=== PATIENT | female | born 1935 | race Caucasian/White ===

== ENCOUNTER 2022-02-23 10:16 | Outpatient (CLI) | payer MEDICARE, BC, SELFPAY ==
--- NOTE | 2022-02-23 10:15 | CRLHL7_ITS ---
For Patients: As a result of the Century Cures Act, medical imaging exams and procedure reports are released immediately into your electronic medical record. You may view this report before your referring provider. If you have questions, please contact your health care provider. RIGHT SCREENING MAMMOGRAM WITH COMPUTER-AIDED DETECTION AND TOMOSYNTHESIS TECHNIQUE: CC and MLO views were obtained. These mammographic images have been obtained using full-field digital technique. These mammographic images were interpreted with the benefit of computer-aided detection. Breast Tomosynthesis was used in this interpretation. COMPARISON FILM: 12/10/19, 01/15/18, 09/18/14. FINDINGS: There are scattered areas of fibroglandular density IMPRESSION: There is no radiographic evidence for malignancy. ASSESSMENT: BI-RADS Category 2: Benign RECOMMENDATION: Routine screening mammogram in 1 year. A lay language report of this examination will be provided to the patient. Danish Wallace M.D. Diagnostic/Musculoskeletal Radiologist [email or web address] ASHLYN/Dictated by: Danish Wallace MD @ 02/24/2022 8:10:00 AM (Electronically Signed)
--- OUTSIDE RECORDS SUMMARY | 2022-02-23 10:19 | XMS_ITS | Clinical Summary ---
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 - - Inhaled Oxygen Concentration - - Weight 90.3 kg (199 lb) 12/27/2018 3:13 PM CDT Height - - Body Mass Index - - Plan of Treatment Upcoming Encounters Date Type Specialty Care Team Description 03/27/2022 Office Visit Ha Campos MD [address] [place] [address] [address] (Wo rk) Health Maintenance Due Date Last Done Comments Tdap 1946 Depression screening for age 12+ 1948 BMI (ht and wt on same day) for age 0107/15/1954 18+ Tetanus booster 1956 Zoster (shingles) series for age 50+ 1986 (1 of 2) DEXA/DXA scan for age 65+ 2001 Medicare Wellness for age 65+ 2001 Pneumococcal series for age 65+ ( - 2001 PCV) COVID-19 vaccine series (4 - Booster 09/24/2021 05/26/2021, 08/05/2020, for Moderna series) 07/08/2020 Influenza for age 65+ 02/23/2022 Results Not on filefrom Last 3 Months Insurance Payer Benefit Plan / Subscriber ID Effective Dates Phone Addre ss Type Group MEDICARE PART A MEDICARE PART A [id number] 2001-Present ATTN: CLAIMS - HB USE ONLY HB ONLY [address] [place] [address] MEDICARE PART B MEDICARE PART B [id number] 2007-Presen ATTN: CLAIMS - HB USE ONLY HB ONLY t [address] [place] [address] MEDICARE - PB MEDICARE PB [id number] 2018-Prese ATT N: CLAIMS USE ONLY ONLY nt [address] [place] [address] [place] [id number] 2001-Present [place] [id number] [place] [address] [address] (Home) [address] [facility] [place] [address] Care Teams Foundry Worker Relationship Specialty Start Date End Date Vane Cruz MD PCP - General Family Practice 02/08/211999 [place] [address]
== END 2022-02-23 10:17 | disposition home or self-care (01) ==
LOC: MAMMO 10:17
PROVIDERS: PCP Family Medicine; Visit Provider Family Medicine
DX: Z12.31 Encounter for screening mammogram for malignant neoplasm of breast (principal)
CPT/HCPCS: 77063; 77067

== ENCOUNTER 2022-04-05 14:15 | Outpatient (CLI) | payer MEDICARE, BC, SELFPAY ==
--- OUTSIDE RECORDS SUMMARY | 2022-04-05 14:18 | XMS_ITS | Clinical Summary ---
:1935 Author Organization [facility] [place] [address] Care Team Providers Name Role Phone Vane Cruz MD Primary Care Provider [phone] Allergies Active Allergy Reactions Severity Noted Date Comments Codeine Itching, Rash 05/17/2011 Medications Medication Sig Dispensed Refills Start Date End Date Status Jantoven 2 mg tablet 0 03/09/2022 Active VITAMINS Take 1 tablet. 0 10/25/2017 Acti ve A,C,I-VUYV-KFEZZP by mouth. (PRESERVISION AREDS) 2,148 mcg-113 mg-45 mg-17.4mg tablet sotaloL (BETAPACE) 80 mg 0 01/27/2022 Active tablet rosuvastatin (CRESTOR) 0 03/26/2022 Active 10 mg tablet oxybutynin XL (DITROPAN 0 03/21/2022 Active XL) 10 mg CR tablet omeprazole (PRILOSEC) 40 0 03/21/2022 Active mg Delayed-Release capsule Wpjrf-6-NZT-EPA-Fish Oil Take 1 capsule. 0 6 Active 1,000 mg (120 mg-180 mg) by mouth. cap multivitamin (MVI) Take 1 Tablet by 0 Active tablet mouth once daily. metoprolol succinate Take 50 mg by 0 Active (TOPROL XL) 25 mg mouth. Sustained-Release tablet artificial Tear, 1 Drop every 6 0 Active hypromellose 0.3 % gel, hours if needed. (GENTEAL) 0.3 % gel furosemide (LASIX) 40 mg 0 01/22/2022 Active tablet finasteride (PROSCAR) 5 0 07/20/2021 Active mg tablet anastrozole (ARIMIDEX) 1 0 01/30/2022 Active mg tablet acetaminophen (TYLENOL Take 1 tablet. 0 06/26/2017 Active EXTRA STRGTH) 500 mg by mouth. tablet Active Problems No known active problems Encounters Date Type Specialty Care Team Description 03/27/2022 Office Visit Ha Campos, Musculo skeletal Problem (Consult bilate ral knee pain, right is worse, discuss Coolief procedu re per TASNEEM Tolentino); Consult (Other joint pain, rosaura ulders) 03/27/2022 Travel from Last 3 Months Social History Tobacco Use Types Packs/Day Years Used Date Never Smoker Smokeless Tobacco: Never Used Sex Assigned at Date Recorded Not on file COVID-19 Exposure Response Date Recorded In the last 10 days, have you been in contact with No / Unsu re 03/27/2022 10:16 AM CDT someone who was confirmed or suspected to have Coronavirus/COVID-19? 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 Saturation 95% 03/27/2022 10:47 AM CDT Inhaled Oxygen Concentration - - Weight 89.5 kg (197 lb 6.4 oz) 03/27/2022 10:47 AM CDT Height - - Body Mass Index - - Plan of Treatment Upcoming Encounters Date Type Specialty Care Team Description 04/11/2022 Procedure Only Ha Campos MD [address] [facility] [address] (Wo rk) Health Maintenance Due Date Last Done Comments Tdap 1946 Depression screening for age 12+ 1948 BMI (ht and wt on same day) for 1954 age 18+ Zoster (shingles) series for age 0107/15/1955 50+ (1 of 2) Tetanus booster 1956 DEXA/DXA scan for age 65+ 2001 Medicare Wellness for age 65+ 2001 Pneumococcal series for age 65+ (1 2001 - PCV) COVID-19 vaccine series (5 - 02/13/2022 12/19/2021, 021, Booster for Moderna series) 08/05/2020, Addition al history exists Influenza for age 65+ 02/23/2022 Results Not on filefrom Last 3 Months Insurance Payer Benefit Plan / Subscriber ID Effective Dates Phone Addre ss Type Group MEDICARE PART A MEDICARE PART A [id number] 2001-Present ATTN: CLAIMS - HB USE ONLY HB ONLY [address] [place] [address] MEDICARE PART B MEDICARE PART B [id number] 2007-Presen ATTN: CLAIMS - HB USE ONLY HB ONLY t [address] [place] [address] MEDICARE - PB MEDICARE PB [id number] 2018-Prese ATT N: CLAIMS USE ONLY ONLY nt [address] [place] [address] [place] [id number] 2001-Present [place] [address] [place] [address] [address] (Home) [address] [facility] [place] [address] Care Teams Anesthesia Technician Relationship Specialty Start Date End Date Vane Cruz MD PCP - General Family Practice 02/08/211999 [facility] [place] [address]
--- NOTE | 2022-04-05 14:30 | CRLHL7_ITS ---
For Patients: As a result of the Century Cures Act, medical imaging exams and procedure reports are released immediately into your electronic medical record. You may view this report before your referring provider. If you have questions, please contact your health care provider. DXA BONE MINERAL DENSITY STUDY Current height (in): 63.0. Weight (lb): 193.0. Menopause age: 51. Ethnicity: White. Reason for exam: Screening. 1. Have you had a previous hip or vertebral fracture? No. 2. Have you had any fractures during your adult life which did not result from significant trauma (e.g., auto accident)? No. 3. Did either of your parents have a hip fracture? No. 4. Do you smoke? No. 5. Have you ever taken Glucocorticoids? No. 6. Do you have rheumatoid arthritis? Yes. 7. Do you have secondary osteoporosis? Yes. 8. Do you drink 3 or more alcoholic drinks per day? No. 9. Are you being treated for osteoporosis? No. 10. Have you ever taken any of the following medications: Actonel, Evista, Fosamax, Miacalcin, Reclast, Boniva, Forteo, HRT (i.e. estrogen/hormone therapy), Protelos, Prolia, Vitamin D, Calcium, other ??? please specify. ANSWER: Yes, vitamin D, calcium. 11. Do you have any of the following medical conditions: Anorexia or bulimia, asthma or emphysema, end stage renal disease, hyperparathyroidism, any seizure disorders, cancer, inflammatory bowel diseases, hysterectomy, other ??? please specify. ANSWER: Yes, cancer. 12. What was your maximum height (inches)? 66. 13. Do you perform weight bearing exercise regularly? No. 14. Do you regularly consume dairy products? No. 15. Do you drink caffeinated beverages? Yes. If female: 16. At what age did your period start? 12. 17. Are you premenopausal? No. 18. How many full term pregnancies have you had? 3. 19. Have you ever missed your period for more than 6 months in a row (not including or menopause)? No. TECHNIQUE: Bone mineral density study was performed using the Navagis. FINDINGS: The results of the study expressed as bone mineral density (BMD) are as follows: Lumbar spine L1 to L2: BMD: 0.889 g/cm2. T-score: -0.8. Z-score: 1.9. Neck Left: BMD: 0.619 g/cm2. T-score: -2.1. Z-score: 0.4. Right: BMD: 0.483 g/cm2. T-score: -3.3. Z-score: -0.8. Total Left: BMD: 0.764 g/cm2. T-score: -1.5. Z-score: 0.9. Right: BMD: 0.707 g/cm2. T-score: -1.9. Z-score: 0.4. IMPRESSION: Osteoporosis. COMPARISON: Compared with scan of 10/28/2018, the bone mineral density has decreased by 0.8 percent at the spine and decreased by 10.8 percent at the hip. Ilya Low M.D. Diagnostic Radiologist [email or web address] Transcribed: 11:20 a.m. DW/Dictated by: Ilya Low MD @ 04/06/2022 8:36:00 AM (Electronically Signed)
== END 2022-04-05 14:16 | disposition home or self-care (01) ==
LOC: RAD 14:16
PROVIDERS: PCP Family Medicine; Visit Provider Nurse Practitioner Family
DX: Z13.820 Encounter for screening for osteoporosis (principal); M81.0 Age-related osteoporosis without current pathological fracture
CPT/HCPCS: 77080

== ENCOUNTER 2022-04-11 14:12 | Outpatient (CLI) | payer MEDICARE, BC, SELFPAY ==
--- OUTSIDE RECORDS SUMMARY | 2022-04-11 14:16 | XMS_ITS | Clinical Summary ---
:1935 Author Organization [facility] Address [place] [address] Care Team Providers Name Role Phone Vane Cruz MD Primary Care Provider [phone] Allergies Active Allergy Reactions Severity Noted Date Comments Codeine Itching, Rash 05/17/2011 Medications Medication Sig Dispensed Refills Start Date End Date Status Jantoven 2 mg tablet 0 03/09/2022 Active VITAMINS Take 1 tablet. 0 10/25/2017 Acti ve A,C,I-KVHI-CXPHNT by mouth. (PRESERVISION AREDS) 2,148 mcg-113 mg-45 mg-17.4mg tablet sotaloL (BETAPACE) 80 mg 0 01/27/2022 Active tablet rosuvastatin (CRESTOR) 0 03/26/2022 Active 10 mg tablet oxybutynin XL (DITROPAN 0 03/21/2022 Active XL) 10 mg CR tablet omeprazole (PRILOSEC) 40 0 03/21/2022 Active mg Delayed-Release capsule Wvyuj-2-WDP-EPA-Fish Oil Take 1 capsule. 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 Oxygen Saturation 95% 03/27/2022 10:47 AM CDT Inhaled Oxygen Concentration - - Weight 89.5 kg (197 lb 6.4 oz) 03/27/2022 10:47 AM CDT Height - - Body Mass Index - - Plan of Treatment Upcoming Encounters Date Type Specialty Care Team Description 04/11/2022 Procedure Only Ha Campos MD Arrived [address] [place], [place] [address] (Wo rk) Health Maintenance Due [...] Group MEDICARE PART A MEDICARE PART A [id number] 2001-Present ATTN: CLAIMS - HB USE ONLY HB ONLY [address] [facility] [address] MEDICARE PART B MEDICARE PART B [id number] 2007-Presen ATTN: CLAIMS - HB USE ONLY HB ONLY t [address] [facility] [place] [address] MEDICARE - PB MEDICARE PB [id number] 2018-Prese ATT N: CLAIMS USE ONLY ONLY nt [address] [facility] [place] [address] [place] [id number] 2001-Present [place] [address] [place] [address] [address] (Home) [address] [facility] [place] [address] Care Teams Barrel Coater Relationship Specialty Start Date End Date Vane Cruz MD PCP - General Family Practice 02/08/211999 [facility] [place] [address]
== END 2022-04-11 14:13 | disposition home or self-care (01) ==
PROVIDERS: PCP Family Medicine; Visit Provider Family Medicine
DX: M17.11 Unilateral primary osteoarthritis, right knee (principal); M25.561 Pain in right knee
CPT/HCPCS: 64454

== ENCOUNTER 2022-04-18 12:09 | Outpatient (CLI) | payer MEDICARE, BC, SELFPAY ==
--- OUTSIDE RECORDS SUMMARY | 2022-04-18 12:21 | XMS_ITS | Clinical Summary ---
:1935 Author Organization [facility] [place] [address] Care Team Providers Name Role Phone Vane Cruz MD Primary Care Provider [phone] Allergies Active Allergy Reactions Severity Noted Date Comments Codeine Itching, Rash 05/17/2011 Medications Medication Sig Dispensed Refills Start Date End Date Status Jantoven 2 mg tablet 0 03/09/2022 Active VITAMINS Take 1 tablet. 0 10/25/2017 Acti ve A,C,Y-UPAY-VGDAGE by mouth. (PRESERVISION AREDS) 2,148 mcg-113 mg-45 mg-17.4mg tablet sotaloL (BETAPACE) 80 mg 0 01/27/2022 Active tablet rosuvastatin (CRESTOR) 0 03/26/2022 Active 10 mg tablet oxybutynin XL (DITROPAN 0 03/21/2022 Active XL) 10 mg CR tablet omeprazole (PRILOSEC) 40 0 03/21/2022 Active mg Delayed-Release capsule Pxlhx-0-BQH-EPA-Fish Oil Take 1 capsule. 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 Oxygen Saturation 95% 03/27/2022 10:47 AM CDT Inhaled Oxygen Concentration - - Weight 89.5 kg (197 lb 6.4 oz) 03/27/2022 10:47 AM CDT Height - - Body Mass Index - - Plan of Treatment Upcoming Encounters Date Type Specialty Care Team Description 04/18/2022 Procedure Only Ha Campos MD Arrived [address] [place], [place] [address] (Wo rk) Health Maintenance [...] history exists Influenza for age 65+ 02/23/2022 Procedures Procedure Name Priority Date/Time Associated Diagnosis Comme nts AMB CONSULT FOR Routine 04/11/2022 12:00 Primary osteoarthriti s Results for this INJECTION AM CDT of right knee procedure are in Chronic pain of right the re sults knee section. from Last 3 Months Results AMB CONSULT FOR INJECTION (04/11/2022 12:00 AM CDT) Narrative This result has an attachment that is no t available. Ha Campos MD AMB REFERRAL/CONSULT ORD from Last 3 Months Insurance Payer Benefit Plan / Subscriber ID Effective Dates Phone Addre ss Type Group MEDICARE PART A MEDICARE PART A [id number] 2001-Present ATTN: CLAIMS - HB USE ONLY HB ONLY [address] MEDICARE PART B MEDICARE PART B [id number] 2007-Presen ATTN: CLAIMS - HB USE ONLY HB ONLY t [address] MEDICARE - PB MEDICARE PB [id number] 2018-Prese ATT N: CLAIMS USE ONLY ONLY nt [address] [place] [id number] 2001-[place] [address] [address] [place] [address] [address] (Home) [address] [facility] [place] [address] Care Teams Driller Helper Relationship Specialty Start Date End Date Vane Cruz MD PCP - General Family Practice 02/08/211999 [facility] [place] [address]
== END 2022-04-18 12:10 | disposition home or self-care (01) ==
LOC: INJ CL 12:09
PROVIDERS: PCP Family Medicine; Visit Provider Family Medicine
DX: M17.11 Unilateral primary osteoarthritis, right knee (principal); G89.29 Other chronic pain; M25.561 Pain in right knee
CPT/HCPCS: 64624; J2250; J3010

== ENCOUNTER 2022-05-23 09:30 | Outpatient (RCR) | payer MEDICARE, BC, SELFPAY ==
[2022-03-23 10:52] LABS: INR 2.22 (0.91-1.10)
--- NOTE | 2022-04-21 11:22 | ONC.NURNOTE ---
Had Christi Gonzalez review DEXA scan, showing worsening osteoporosis. She recommended either beginning bisphosphonate therapy or stopping AI. Pt scheduled to come in 04/27 to discuss next steps.
--- NOTE | 2022-04-28 14:32 | URNOTE ---
Request received for authorization for Reclast ([id number]). Prior Authorization is not needed per insurance Rep. Little call ref#[id number].
--- NOTE | 2022-05-01 14:41 | ONC.NURNOTE ---
Addendum entered by Ashlee Rivera RN 05/12/22 09:32: Per Christi Ngo, SAUD - patient is 86, fracture risk is way higher than osteonecrosis complications - ok to treat WITHOUT dental clearance. Addendum entered by Ashlee Rivera RN 05/09/22 14:26: Patient called office wanting to schedule the medication that provider recommended. Patient told that the reclast was approved and requested her dental office to get clearance. Patient states that she has not been seen by a dentist in about 5-8 years. She was informed why we need dental clearance, and patient stated Im afraid that I may not pass. Patient would prefer to not make a dental appointment. She questions whether all of this is necessary with the oral formulation. Nursing to talk with Christi Ngo when next in clinic on 05/11/2022 to determine what is best plan for patient. Original Note: Patient has approval of her reclast. Block Feeder has attempted to contact patient to set up an appointment, but her voicemail is not set up. The following needs to be completed prior to starting patient: 1. Change dose to 5mg per conversation with Christi Ngo 2. Obtain dental clearance from dental office
[2022-05-23 09:40] VITALS: BP 112/71; PULSE 63; RESP 18; TEMP 36.9; O2SAT 93
[2022-05-23 10:00] LABS: Est. Creatinine Clearance* 31.04; Estimated Glomerular Filt Rate 55 ml/min
[2022-05-23 10:01] LABS: Calcium* 9.8 mg/dL (8.4-10.6)
== END 2022-09-19 23:59 | disposition home or self-care (01) ==
LOC: CCIC 09:30
PROVIDERS: PCP Family Medicine; Referring Provider Family Medicine; Visit Provider Nurse Practitioner Family
DX: C50.912 Malignant neoplasm of unspecified site of left female breast (principal); Z17.0 Estrogen receptor positive status [ER+]; Z79.811 Long term (current) use of aromatase inhibitors
CPT/HCPCS: 36415; 82310; 82565; 85610; 96374; 99212; 99213; 99214; J3489

== ENCOUNTER 2022-06-30 13:33 | Outpatient (CLI) | payer MEDICARE, BC, SELFPAY | END 2022-06-30 13:34 | disposition home or self-care (01) | LOC: AMB 20:05 | PROVIDERS: PCP Family Medicine; Visit Provider Family Medicine | DX: R07.89 Other chest pain (principal); R06.03 Acute respiratory distress | CPT/HCPCS: A0425; A0427 ==

== ENCOUNTER 2022-06-30 14:08 | Emergency (ER) | payer MEDICARE, BC, SELFPAY ==
[2022-06-30 14:15] VITALS: PULSE 67; RESP 18; TEMP 36.9; O2SAT 95; BMI 34.5
[2022-06-30 14:44] VITALS: BP 123/68
[2022-06-30 14:46] VITALS: O2SAT 94
--- NOTE | 2022-06-30 14:46 | CRLHL7_ITS ---
For Patients: As a result of the Cures Act, medical imaging exams and procedure reports are released immediately into your electronic medical record. You may view this report before your referring provider. If you have questions, please contact your health care provider. INDICATION: Shortness of breath. TECHNIQUE: Chest 1 views. COMPARISON: None. FINDINGS: Cardiovascular and mediastinum: Heart size and vasculature are normal in caliber and appearance. Large hiatal hernia. Lungs and pleural spaces: Low lung volumes. Right apical thickening. Otherwise, no focal consolidations no sign of pleural effusion. No pneumothorax. Bones and soft tissues: No significant findings. IMPRESSION: Low lung volumes with mild indeterminate right apical thickening. Dictated by Raffi Méndez MD @ 06/30/2022 4:47:28 PM (Electronically Signed)
--- NOTE | 2022-06-30 14:47 | CRLHL7_ITS ---
For Patients: As a result of the Cures Act, medical imaging exams and procedure reports are released immediately into your electronic medical record. You may view this report before your referring provider. If you have questions, please contact your health care provider. INDICATION: Trauma. Fall. Headaches. TECHNIQUE: Noncontrast axial CT of the head is submitted. No comparisons. FINDINGS: Mild cerebral atrophy. The ventricles, sulci and gyri are of normal size, shape and contour for age and degree of atrophy. Midline structures are centrally located. No convincing evidence of suspicious intra- or extra-axial fluid collections. Mild patchy regions of decreased attenuation within the periventricular and subcortical white matter of both cerebral hemispheres. IMPRESSION: 1. No radiographic evidence of acute intracranial abnormalities. 2. Mild cerebral atrophy. 3. Mild supratentorial white matter changes that are non-specific, but statistically most likely related to chronic small vessel ischemic disease. Dictated by Pete Shaw MD @ 06/30/2022 4:35:05 PM Please note that all CT scans at this facility use dose modulation, iterative reconstruction, and/or weight-based dosing when appropriate to reduce radiation dose to as low as reasonably achievable. Dictated by: Pete Shaw MD @ 06/30/2022 16:35:15 (Electronically Signed)
--- NOTE | 2022-06-30 14:51 | ED_ITS ---
HPI - General Adult General Chief complaint: Fall/Minor Trauma Stated complaint: Fall Time Seen by Provider: 06/30/22 14:22 Source: patient Mode of arrival: EMS Limitations: no limitations History of Present Illness HPI narrative: 86-year-old female coming in today after an unwitnessed fall. Patient states that she feels fine. She states that she does not remember falling but that she remembers having people in her room helping her get up. She remembers waking up with her head her closet. She denies any headache or neck pain. States that she has been coughing for the last 3 years and she is coughing today but this is not new. She denies fevers. She states that every now and then she feels chilly. She had a decreased appetite last night and this morning, refusing both meals. She denies any diarrhea or urinary symptoms. She denies any chest pain. She does state that she feels slightly short of breath for about a week. She states that her daughter noticed that she was breathing hard last weekend. She states that her daughter did have COVID-19 over the holidays and that she was around her on [place]. Patient is on a blood thinner for atrial fibrillation. Patient denies any back pain. No abdominal discomfort. No extremity discomfort. EMT was concerned because patient was satting 89% on room air when they found her, so they placed her on oxygen. She was 95% on 2 L nasal cannula. Related Data Home Medications Medication Instructions Recorded Confirmed acetaminophen 500 mg tablet 500 mg PO PRN 01/10/22 04/27/22 calcium carbonate 600 mg-vitamin 1 tab PO DAILY 01/10/22 04/27/22 D3 10 mcg (400 unit) tablet furosemide 40 mg tablet 40 mg PO DAILY 01/10/22 04/27/22 multivitamin (Daily Multi-Vitamin 1 tab PO QDAY 01/10/22 04/27/22 tablet) omeprazole 40 mg capsule,delayed 40 mg PO DAILY 01/10/22 04/27/22 release rosuvastatin 10 mg tablet 10 mg PO DAILY 01/10/22 04/27/22 vitamins A,C,M-yhox-vhwgqc 14,320 1 cap PO BID 01/10/22 04/27/22 unit-226 mg-200 unit capsule (PreserVision AREDS) omega 5-lpe-ikc-fish oil 1,000 mg 2 cap PO QDAY 02/01/22 04/27/22 (120 mg-180 mg) capsule (Fish Oil) Previous Rx's Medication Instructions Recorded oxybutynin chloride 10 mg 10 mg PO QDAY #90 tabs 12/30/21 tablet,extended release 24 hr acetaminophen 650 mg 650 mg PO Q8H #90 tabs 01/10/22 tablet,extended release anastrozole 1 mg tablet 1 mg PO DAILY #90 tabs 02/17/22 sotalol 80 mg tablet 80 mg PO BID #180 tabs 05/25/22 warfarin 2 mg tablet 2 mg PO .COMPLEX #90 tabs 05/25/22 Allergies Allergy/AdvReac Type Severity Reaction Status Date / Time codeine Allergy Intermediate Rash Verified 05/23/22 10:10 NSAIDS (Non-Steroidal AdvReac Unknown Verified 05/23/22 10:10 Anti-Inflamma Review of Systems Status of ROS: Reports: 10 or more systems reviewed and unremarkable except as noted in History and below [facility] Medical History Anemia Cough with hemoptysis Encounter for counseling regarding advance directives (05/02/12) History of rheumatoid arthritis Surgical History History of appendectomy (1952) History of cholecystectomy (1998) History of tonsillectomy (1941) Status post left mastectomy (10/03/18) Family History Mother Hx of blood clots Liver cancer Son Hx of blood clots Father Prostate cancer Social History Narrative: Does not drink alcohol Non-smoker , lives at [facility], 3 adult children Smoking Status: Never smoker Do you use any of these nicotine containing products: None Second hand tobacco smoke exposure: No Non-prescribed substance use: denies use Exam Narrative: Exam Narrative: Well-nourished well-developed patient in no acute distress. Alert and oriented x3. Answers questions appropriately. Mood and affect are appropriate. Thoughts are goal oriented and rational. No tangential or magical thinking noted. Patient speaks in full sentences without needing to catch her breath. Speech is not slurred or pressured. Voice sounds normal. GCS is 15. HEENT: Normocephalic atraumatic. Pupils are equally round reactive to light. Extraocular muscles are intact. Conjunctivae are moist without any icterus noted. Moist mucous membranes. Posterior pharynx is normal. Neck is soft without any lymphadenopathy or thyromegaly. No masses are appreciated. She has no tenderness to palpation of her neck or cervical spine. She has full range of motion with flexion, extension, side way bending and rotation without pain or difficulty. Scalp appears normal without any evidence of trauma. Cardiovascular: Heart is regular rate and rhythm S1 and S2 are present without any murmurs. She has no tenderness to palpation of the anterior lateral posterior chest wall. Lungs: Crackles bilaterally. She takes deep breaths without pain. Abdomen: Soft and nontender nondistended with normal bowel sounds. No guarding or rebound. Extremities: Bilateral lower extremities are without edema. Skin: Well perfused without any obvious rashes. Back: Appears normal. No tenderness over the thoracic or lumbar spine. Strength is 5/5 of the upper and lower extremities. Reflexes are 2+ and symmetric at the knees. Cranial nerves 3-12 are normal. There is no nystagmus either horizontally or vertically. Const: Vital Signs, click to edit/add: Vital Signs - 24 hr 06/30/22 14:15 06/30/22 14:44 06/30/22 15:05 Temperature 98.5 F Pulse Rate [Left P ulse Oximeter] 67 63 Respiratory Rate 18 18 Blood Pressure [Le ft Upper Arm] 123/68 111/73 Pulse Oximetry 95 96 Oxygen Delivery Me thod Nasal Cannula Room Air Oxygen Flow Rate 2 06/30/22 15:35 06/30/22 16:05 06/30/22 14:46 Temperature Pulse Rate [Left P ulse Oximeter] 55 L 61 Respiratory Rate 9 L 12 Blood Pressure [Le ft Upper Arm] 120/59 L 169/94 H Pulse Oximetry 92 92 94 Oxygen Delivery Me thod Room Air Room Air Oxygen Flow Rate Course Course Hospital Course: Workup was entirely unremarkable. Head CT was normal. Chest x-ray unremarkable. Labs were normal. We were able to remove the patient from oxygen therapy, she remained 92% on room air. Vital Signs Vital signs: Initial Vital Signs Temperature 98.5 F 06/30/22 14:15 Temperature Source Temporal Artery Scan 06/30/22 14:15 Pulse Rate 67 06/30/22 14:15 Pulse Rhythm 06/30/22 14:15 Pulse Strength 3+ Normal 06/30/22 14:15 Respiratory Rate 18 06/30/22 14:15 Pulse Oximetry 95 06/30/22 14:15 Oxygen Delivery Method 06/30/22 14:15 Oxygen Flow Rate 2 06/30/22 14:15 Vital Signs Temperature 98.5 F 06/30/22 14:15 Pulse Rate 67 06/30/22 14:15 Respiratory Rate 18 06/30/22 14:15 Pulse Oximetry 95 06/30/22 14:15 Oxygen Delivery Method 06/30/22 14:15 Oxygen Flow Rate 2 06/30/22 14:15 Temperature 98.5 F 06/30/22 14:15 Pulse Rate 61 06/30/22 16:05 Respiratory Rate 12 06/30/22 16:05 Blood Pressure 169/94 H 06/30/22 16:05 Pulse Oximetry 92 06/30/22 16:05 Oxygen Delivery Method 06/30/22 16:05 Oxygen Flow Rate 2 06/30/22 14:15 Medical Decision Making MDM Narrative Medical decision making narrative: 86-year-old female status post fall, unwitnessed. Workup unremarkable. Cough, chronic-nothing acute found today. INR-subtherapeutic. Recommend she follow up with primary care. Patient will be discharged back to the snf. Lab Data Lab results reviewed: Yes I reviewed the patient's lab results Labs: Lab Results 06/30/22 06/30/22 06/30/22 Range/Units 15:00 15:40 15:40 WBC 10.52 (4.50-11.00) K/uL RBC 4.68 (4.00-5.20) m/uL Hgb 14.0 (12.0-16.0) gm/dL Hct 43.6 (33.0-51.0) % MCV 93 (80-100) fL MCH 30 (26-34) pg MCHC 32 (32-36) gm/dL RDW Coeff of Jose 14.2 (11.5-15.5) % Plt Count 221 (140-440) K/uL Neut % (Auto) 65.7 (42.0-72.0) % Lymph % (Auto) 20.3 (20-44) % [place] % (Auto) 10.6 (0.0-11.0) % Eos % (Auto) 2.9 (0.0-7.0) % Baso % (Auto) 0.3 (0.0-3.0) % Neut # (Auto) 6.91 (1.7-7.0) K/uL Lymph # (Auto) 2.14 (0.90-2.90) K/uL [place] # (Auto) 1.10 H (0.00-0.90) K/UL Eos # (Auto) 0.30 (0.00-0.50) K/uL Baso # (Auto) 0.03 (0.00-0.30) K/uL INR (0.91-1.10) Sodium 139 (135-149) mmol/L Potassium 3.9 (3.6-5.1) mmol/L Chloride 108 (96-114) mmol/L Carbon Dioxide 24 (20-32) mmol/L BUN 26 (7-30) mg/dL Creatinine 1.2 (0.5-1.5) mg/dL Estimated Creat Clear 28.35 Estimated GFR 44 ml/min Glucose 96 (60-115) mg/dL Lactate (0.5-1.9) mmol/L Calcium 8.7 (8.4-10.6) mg/dL Total Bilirubin 0.5 (0.1-1.5) mg/dL Direct Bilirubin 0.2 (0.0-0.5) mg/dL AST 34 (12-35) U/L ALT 25 (4-35) U/L Alkaline Phosphatase 86 (40-150) U/L Troponin I < 0.01 L (0.01-0.04) ng/mL C-Reactive Protein < 0.5 L (0.5-1.0) mg/dL Total Protein 7.1 (6.0-8.3) g/dL Albumin 4.0 (3.3-5.0) g/dL Urine Color (Yellow) Urine Appearance (Clear) Urine pH (5.0-8.5) Ur Specific [place] (1.000-1.030) Urine Protein (Negative) Urine Glucose (UA) (Negative) Urine Ketones (Negative) Urine Blood (Negative) Urine Nitrite (Negative) Urine Bilirubin (Negative) Urine Urobilinogen (0.2-1.0) Ur Leukocyte Esterase (Negative) Urine RBC (0-2) Urine WBC (0-5) Ur Squamous Epith Cells (None-Few) Urine Bacteria (None) SARS-CoV-2 (PCR) Negative SARS-CoV-2 (Negative) Influenza Type A (PCR) Negative PCR FLU A (Negative) Influenza Type B (PCR) Negative PCR FLU B (Negative) RSV (PCR) Negative PCR RSV (Negative) 06/30/22 06/30/22 06/30/22 Range/Units 15:40 15:40 16:15 WBC (4.50-11.00) K/uL RBC (4.00-5.20) m/uL Hgb (12.0-16.0) gm/dL Hct (33.0-51.0) % MCV (80-100) fL MCH (26-34) pg MCHC (32-36) gm/dL RDW Coeff of Jose (11.5-15.5) % Plt Count (140-440) K/uL Neut % (Auto) (42.0-72.0) % Lymph % (Auto) (20-44) % [place] % (Auto) (0.0-11.0) % Eos % (Auto) (0.0-7.0) % Baso % (Auto) (0.0-3.0) % Neut # (Auto) (1.7-7.0) K/uL Lymph # (Auto) (0.90-2.90) K/uL [place] # (Auto) (0.00-0.90) K/UL Eos # (Auto) (0.00-0.50) K/uL Baso # (Auto) (0.00-0.30) K/uL INR 1.38 H (0.91-1.10) Sodium (135-149) mmol/L Potassium (3.6-5.1) mmol/L Chloride (96-114) mmol/L Carbon Dioxide (20-32) mmol/L BUN (7-30) mg/dL Creatinine (0.5-1.5) mg/dL Estimated Creat Clear Estimated GFR ml/min Glucose (60-115) mg/dL Lactate 1.5 (0.5-1.9) mmol/L Calcium (8.4-10.6) mg/dL Total Bilirubin (0.1-1.5) mg/dL Direct Bilirubin (0.0-0.5) mg/dL AST (12-35) U/L ALT (4-35) U/L Alkaline Phosphatase (40-150) U/L Troponin I (0.01-0.04) ng/mL C-Reactive Protein (0.5-1.0) mg/dL Total Protein (6.0-8.3) g/dL Albumin (3.3-5.0) g/dL Urine Color Yellow (Yellow) Urine Appearance Clear (Clear) Urine pH 5.0 (5.0-8.5) Ur Specific [place] 1.015 (1.000-1.030) Urine Protein Negative (Negative) Urine Glucose (UA) Negative (Negative) Urine Ketones Negative (Negative) Urine Blood Negative (Negative) Urine Nitrite Negative (Negative) Urine Bilirubin Negative (Negative) Urine Urobilinogen 0.2 (0.2-1.0) Ur Leukocyte Esterase Negative (Negative) Urine RBC 0-2 (0-2) Urine WBC 0-2 (0-5) Ur Squamous Epith Cells None (None-Few) Urine Bacteria None (None) SARS-CoV-2 (PCR) (Negative) Influenza Type A (PCR) (Negative) Influenza Type B (PCR) (Negative) RSV (PCR) (Negative) Imaging Data CT scan - head: Attestation: I have reviewed the pertinent imaging results. Radiologist's impression: Noncontrast axial CT of the head is submitted. No comparisons. FINDINGS: Mild cerebral atrophy. The ventricles, sulci and gyri are of normal size, shape and contour for age and degree of atrophy. Midline structures are centrally located. No convincing evidence of suspicious intra- or extra-axial fluid collections. Mild patchy regions of decreased attenuation within the periventricular and subcortical white matter of both cerebral hemispheres. IMPRESSION: 1. No radiographic evidence of acute intracranial abnormalities. 2. Mild cerebral atrophy. 3. Mild supratentorial white matter changes that are non-specific, but statistically most likely related to chronic small vessel ischemic disease. Chest x-ray: Attestation: I have reviewed the pertinent imaging results. My impression: No acute findings Radiologist's impression: Chest 1 views. COMPARISON: None. FINDINGS: Cardiovascular and mediastinum: Heart size and vasculature are normal in caliber and appearance. Large hiatal hernia. Lungs and pleural spaces: Low lung volumes. Right apical thickening. Otherwise, no focal consolidations no sign of pleural effusion. No pneumothorax. Bones and soft tissues: No significant findings. IMPRESSION: Low lung volumes with mild indeterminate right apical thickening. ECG Data Attestation: I personally reviewed and interpreted this ECG as follows: (Normal sinus rhythm, pulse 65) Discharge Plan Discharge Clinical Impression: Subtherapeutic international normalized ratio (INR), Chronic cough, Fall Patient Disposition: Home, Self-Care Condition: Stable Additional Instructions: No evidence of injury was found on today's workup. Patient's INR is subtherapeutic-I recommend you follow-up 1st thing with patient's INR nurse or primary care provider to discuss dosing. Prescriptions: No Action calcium carbonate-vitamin D3 600 mg-10 mcg (400 unit) tablet 1 tab PO DAILY multivitamin [Daily Multi-Vitamin] Tablet 1 tab PO QDAY PreserVision AREDS [id number] capsule 1 cap PO BID furosemide 40 mg tablet 40 mg PO DAILY rosuvastatin 10 mg tablet 10 mg PO DAILY omeprazole 40 mg capsule,delayed release(DR/EC) 40 mg PO DAILY acetaminophen 500 mg tablet 500 mg PO PRN Rx Instructions: NO MORE THAN 3000mg acetaminophen 650 mg tablet extended release 650 mg PO Q8H Qty: 90 1RF omega 2-bwl-oec-fish oil [Fish Oil] 1,000 mg (120 mg-180 mg) capsule 2 cap PO QDAY oxybutynin chloride 10 mg tablet extended release 24 hr 10 mg PO QDAY Qty: 90 3RF anastrozole 1 mg tablet 1 mg PO DAILY Qty: 90 3RF sotalol 80 mg tablet 80 mg PO BID Qty: 180 1RF warfarin 2 mg tablet 2 mg PO .COMPLEX Qty: 90 2RF Protocol: Dose Management Condition: Sunday Dose/Route: 2 % Instruction: 1 x 2 % tablet Condition: Sunday Dose/Route: 2 % Instruction: 1 x 2 % tablet Condition: Sunday Dose/Route: 3 % Instruction: 1.5 x 2 % tablets Condition: Sunday Dose/Route: 2 % Instruction: 1 x 2 % tablet Condition: Dose/Route: 3 % Instruction: 1.5 x 2 % tablets Condition: Sunday Dose/Route: 2 % Instruction: 1 x 2 % tablet Condition: Sunday Dose/Route: 3 % Instruction: 1.5 x 2 % tablets Protocol Text: Adjustment Start Date: Sunday05/12/22 INR Value: 2.2 INR Date: 05/12/22 Recheck Date: 06/11/22 Rx Instructions: 2 mg orally; Gomes 2 MG, M 2 MG, Tu 3 MG, W 2 MG, Th 3 MG, F 2 MG, Sa 3 MG Follow Up/Referrals: Vane Cruz MD [Primary Care Provider] - Stand Alone Forms: [employer] Info Instructions
[2022-06-30 15:05] VITALS: BP 111/73; PULSE 63; RESP 18; O2SAT 96
[2022-06-30 15:35] VITALS: BP 120/59; PULSE 55; RESP 9; O2SAT 92
[2022-06-30 15:52] LABS: Basophils Absolute Auto 0.03 K/uL (0.00-0.30); Basophils Percent Auto 0.3 % (0.0-3.0); Eosinophils Percent Auto 2.9 % (0.0-7.0); Hematocrit 43.6 % (33.0-51.0); Immature Granulocytes Abs Auto 0.02 K/uL (0.00-0.30); Immature Granulocytes Pct Auto 0.2 %; Lymphocytes Absolute Auto 2.14 K/uL (0.90-2.90); Lymphocytes Percent Auto 20.3 % (20-44); Mean Corpuscular HGB Conc 32 gm/dL (32-36); Mean Corpuscular Hemoglobin 30 pg (26-34); Mean Corpuscular Volume 93 fL (80-100); Monocytes Percent Auto 10.6 % (0.0-11.0); Neutrophils Absolute Auto 6.91 K/uL (1.7-7.0); Neutrophils Percent Auto 65.7 % (42.0-72.0); Platelet Count* 221 K/uL (140-440); RDW Coefficient of Variation % 14.2 % (11.5-15.5); Red Blood Count 4.68 m/uL (4.00-5.20); White Blood Count* 10.52 K/uL (4.50-11.00)
[2022-06-30 15:55] LABS: Lactate* 1.5 mmol/L (0.5-1.9); Slide Review Reflex No
[2022-06-30 16:05] VITALS: BP 169/94; PULSE 61; RESP 12; O2SAT 92
[2022-06-30 16:19] LABS: Chloride* 108 mmol/L (96-114)
[2022-06-30 16:20] LABS: Potassium* 3.9 mmol/L (3.6-5.1); Sodium* 139 mmol/L (135-149)
[2022-06-30 16:23] LABS: Blood Urea Nitrogen* 26 mg/dL (7-30); Carbon Dioxide* 24 mmol/L (20-32); Glucose* 96 mg/dL (60-115)
[2022-06-30 16:24] LABS: Calcium* 8.7 mg/dL (8.4-10.6)
[2022-06-30 16:30] LABS: Appearance Urine Clear (Clear); Bilirubin Urine Negative (Negative); Blood Urine Negative (Negative); Color Urine Yellow (Yellow); Glucose Urine Negative (Negative); Ketones Urine Negative (Negative); Leukocyte Esterase Urine Negative (Negative); Nitrite Urine Negative (Negative); Protein Urine Negative (Negative); Specific Gravity Urine 1.015 (1.000-1.030); Urobilinogen Urine 0.2 (0.2-1.0)
[2022-06-30 16:36] LABS: C Reactive Protein* < 0.5 mg/dL (0.5-1.0)
[2022-06-30 16:37] LABS: RBC Urine 0-2 (0-2); WBC Urine 0-2 (0-5)
[2022-06-30 16:50] LABS: INR 1.38 (0.91-1.10); Prothrombin Time 17.8 Seconds
[2022-06-30 16:51] LABS: PCR FLU A Negative PCR FLU A (Negative); PCR FLU B Negative PCR FLU B (Negative); PCR RSV Negative PCR RSV (Negative)
[2022-06-30 17:08] LABS: Creatinine* 1.2 mg/dL (0.5-1.5); Est. Creatinine Clearance* 28.35; Estimated Glomerular Filt Rate 44 ml/min
[2022-06-30 17:09] LABS: Alanine Aminotransferase* 25 U/L (4-35); Alkaline Phosphatase* 86 U/L (40-150); Aspartate Amino Transferase* 34 U/L (12-35); Bilirubin Direct* 0.2 mg/dL (0.0-0.5); Bilirubin Total* 0.5 mg/dL (0.1-1.5); Total Protein* 7.1 g/dL (6.0-8.3)
[2022-06-30 17:22] LABS: Troponin I* < 0.01 ng/mL (0.01-0.04)
[2022-06-30 19:01] LABS: SARS PCR* Negative SARS-CoV-2 (Negative)
== END 2022-06-30 19:45 | disposition home or self-care (01) ==
PROVIDERS: Emergency Provider Family Medicine; PCP Family Medicine
DX: S09.90XA Unspecified injury of head, initial encounter (principal); D68.8 Other specified coagulation defects; W19.XXXA Unspecified fall, initial encounter
CPT/HCPCS: 36415; 70450; 71045; 80048; 80076; 81001; 83605; 84484; 85025; 85610; 86140; 87086; 87502; 87634; 87635; 93005; 94761; 99285

== ENCOUNTER 2022-12-22 10:23 | Outpatient (RCR) | payer MEDICARE, BC, SELFPAY | END 2023-06-20 23:59 | disposition home or self-care (01) | LOC: CCIC 10:23 | PROVIDERS: PCP Family Medicine; Visit Provider Nurse Practitioner Family | DX: C50.912 Malignant neoplasm of unspecified site of left female breast (principal); Z17.0 Estrogen receptor positive status [ER+]; Z79.811 Long term (current) use of aromatase inhibitors; M81.0 Age-related osteoporosis without current pathological fracture | CPT/HCPCS: 99212; 99214 ==

== ENCOUNTER 2023-03-05 12:47 | Outpatient (CLI) | payer MEDICARE, BC, SELFPAY | END 2023-03-05 12:48 | disposition home or self-care (01) | PROVIDERS: PCP Family Medicine; Visit Provider Internal Medicine Cardiovascular Disease | DX: I48.91 Unspecified atrial fibrillation (principal); I34.0 Nonrheumatic mitral (valve) insufficiency | CPT/HCPCS: 93306 ==

== ENCOUNTER 2023-04-10 11:05 | Outpatient (CLI) | payer MEDICARE, BC, SELFPAY ==
--- NOTE | 2023-04-10 11:30 | CRLHL7_ITS ---
For Patients: As a result of the Cures Act, medical imaging exams and procedure reports are released immediately into your electronic medical record. You may view this report before your referring provider. If you have questions, please contact your health care provider. BILATERAL SCREENING MAMMOGRAM WITH COMPUTER-AIDED DETECTION AND TOMOSYNTHESIS TECHNIQUE: CC and MLO views were obtained. These mammographic images have been obtained using full-field digital technique. These mammographic images were interpreted with the benefit of computer-aided detection. Breast Tomosynthesis was used in this interpretation. COMPARISON FILM: 02/23/22, 12/15/20, 12/10/19. FINDINGS: There are scattered areas of fibroglandular density IMPRESSION: There is no radiographic evidence for malignancy. ASSESSMENT: BI-RADS Category 1: Negative RECOMMENDATION: Routine screening mammogram in 1 year. A lay language report of this examination will be provided to the patient. CECILIO YODER M.D. Diagnostic/Nuclear Medicine Radiologist [email or web address] DO:[email or web address] Transcribed: 2:28 [email or web address] zhang/Dictated by: Cecilio Yoder MD @ 04/10/2023 12:02:00 PM (Electronically Signed)
== END 2023-04-10 11:06 | disposition home or self-care (01) ==
PROVIDERS: PCP Family Medicine; Visit Provider Family Medicine
DX: Z12.31 Encounter for screening mammogram for malignant neoplasm of breast (principal)
CPT/HCPCS: 77063; 77067

== ENCOUNTER 2023-04-12 14:07 | Outpatient (CLI) | payer MEDICARE, BC, SELFPAY ==
--- NOTE | 2023-04-12 14:30 | CRLHL7_ITS ---
For Patients: As a result of the Century Cures Act, medical imaging exams and procedure reports are released immediately into your electronic medical record. You may view this report before your referring provider. If you have questions, please contact your health care provider. DXA BONE MINERAL DENSITY STUDY Reason for exam: Osteoporosis. Current height (in): 63. Weight (lb): 188. Menopause age: 51. Ethnicity: White. 1. Have you had a previous hip or vertebral fracture? No. 2. Have you had any fractures during your adult life which did not result from significant trauma (e.g., auto accident)? No. 3. Did either of your parents have a hip fracture? No. 4. Do you smoke? No. 5. Have you ever taken Glucocorticoids? No. 6. Do you have rheumatoid arthritis? Yes. 7. Do you have secondary osteoporosis? Yes. 8. Do you drink 3 or more alcoholic drinks per day? No. 9. Are you being treated for osteoporosis? No. 10. Have you ever taken any of the following medications: Actonel, Evista, Fosamax, Miacalcin, Reclast, Boniva, Forteo, HRT (i.e., estrogen/hormone therapy), Protelos, Prolia, Vitamin D, Calcium, other ??? please specify. ANSWER: Yes, vitamin D and calcium. 11. Do you have any of the following medical conditions: Anorexia or bulimia, asthma or emphysema, end stage renal disease, hyperparathyroidism, any seizure disorders, cancer, inflammatory bowel diseases, hysterectomy, other ??? please specify. ANSWER: Yes, breast cancer, mastectomy. 12. What was your maximum height (inches)? 66. 13. Do you perform weight bearing exercise regularly? No. 14. Do you regularly consume dairy products? No. 15. Do you drink caffeinated beverages? Yes. If female: 16. At what age did your period start? 12. 17. Are you premenopausal? No. 18. How many full-term pregnancies have you had? 3. 19. Have you ever missed your period for more than 6 months in a row (not including or menopause)? No. TECHNIQUE: Bone mineral density study was performed using the [employer]. FINDINGS: The results of the study expressed as bone mineral density (BMD) are as follows: Lumbar spine L1 to L2: BMD: 0.924 g/cm2. T-score: -0.5. Z-score: 2.2 Neck Left: BMD: 0.647 g/cm2. T-score: -1.8. Z-score: 0.7 Right: BMD: 0.559 g/cm2. T-score: -2.6. Z-score: -0.1 Total Left: BMD: 0.872 g/cm2. T-score: -0.6. Z-score: 1.8 Right: BMD: 0.723 g/cm2. T-score: -1.8. Z-score: 0.5 IMPRESSION: Osteoporosis. *Comparison exams done prior to 11/2019 were performed on different unit, [employer]. COMPARISON: Compared with scan of 04/05/2022, the bone mineral density has increased by 4.0 percent at the spine and increased by 8.4 percent at the hip. Compared with scan of 10/28/2018, the bone mineral density has decreased by 0.8 percent at the spine and decreased by 10.8 percent at the hip. Ilya Low M.D. Diagnostic Radiologist [email or web address] VIANEY/[email or web address] zhang/Dictated by: Ilya Low MD @ 04/16/2023 8:51:00 AM (Electronically Signed)
== END 2023-04-12 14:08 | disposition home or self-care (01) ==
LOC: RAD 14:07
PROVIDERS: PCP Family Medicine; Visit Provider Nurse Practitioner Family
DX: M81.0 Age-related osteoporosis without current pathological fracture (principal)
CPT/HCPCS: 77080

== ENCOUNTER 2023-04-28 10:33 | Outpatient (CLI) | payer MEDICARE, BC, SELFPAY | END 2023-04-28 10:34 | disposition home or self-care (01) | LOC: AMB 04-30 11:07 | PROVIDERS: PCP Family Medicine; Visit Provider Family Medicine | DX: R42 Dizziness and giddiness (principal) | CPT/HCPCS: A0425; A0427 ==

== ENCOUNTER 2023-04-28 11:14 | Emergency (ER) | payer MEDICARE, BC, SELFPAY ==
[2023-04-28 11:19] VITALS: BP 128/69; PULSE 64; RESP 16; TEMP 36.9; O2SAT 98; BMI 33.1
--- NOTE | 2023-04-28 11:26 | CRLHL7_ITS ---
For Patients: As a result of the Century Cures Act, medical imaging exams and procedure reports are released immediately into your electronic medical record. You may view this report before your referring provider. If you have questions, please contact your health care provider. INDICATION: Dizziness. TECHNIQUE: CT of the head without contrast. Coronal and sagittal reformats are included. COMPARISON: Head CT from 06/30/2022. FINDINGS: No CT evidence of acute cortical infarct. No loss of thomason white matter differentiation. No hyperdense vessels to suggest intracranial thrombus. No acute intracranial hemorrhage. No mass effect or midline shift. No hydrocephalus or extra-axial collections. Scattered white matter hypoattenuation, typical for chronic microvascular ischemic change. Intracranial vascular calcifications. No acute osseous abnormalities. Mastoid air cells and paranasal sinuses are clear. Normal soft tissues. IMPRESSION: IMPRESSION:1. No CT evidence of acute cortical infarct. No acute intracranial hemorrhage. No other acute intracranial findings. Please note that all CT scans at this facility use dose modulation, iterative reconstruction, and/or weight-based dosing when appropriate to reduce radiation dose to as low as reasonably achievable. Dictated by Gideon Bowles MD @ 04/28/2023 12:38:50 PM (Electronically Signed)
--- NOTE | 2023-04-28 11:29 | ED_ITS ---
I did not see or take part in the evalulation or treatment of this patient HPI - General Adult General Time Seen by Provider: 11:29 Date Seen: 04/28/23 Chief complaint: Weakness Stated complaint: dizziness Time Seen by Provider: 04/28/23 11:15 Source: EMS History of Present Illness HPI narrative: Patient is a pleasant a pleasant 87 year white female who has had longstanding balance issues and dizziness. She bent over to scrap picker her slacks today and as she stood back up she felt dizzy and lightheaded little bit of vertiginous type feeling. She has had that in the past. She was on the floor then although she did not really fall she slumped down she reports and nurses called the ambulance and she was brought to the hospital. She denies chest pain breathing problem fevers or chills she does not feel dizzy unless she looks down. She has no headache no neck stiffness no back pain no hip pain. She is moving all extremities. Had no recent fever chills or cough. As mentioned she has had l jacob-standing instability with gait and balance and dizziness. Related Data Home Medications Medication Instructions Recorded Confirmed calcium carbonate 600 mg-vitamin 1 tab PO DAILY 01/10/22 01/16/23 D3 10 mcg (400 unit) tablet multivitamin (Daily Multi-Vitamin 1 tab PO QDAY 01/10/22 01/16/23 tablet) vitamins A,C,W-jmcu-pwtzbi 4,296 1 cap PO BID 01/10/22 01/16/23 mcg-226 mg-90 mg capsule (PreserVision AREDS) omega 6-svr-sgw-fish oil 1,000 mg 2 cap PO QDAY 02/01/22 01/16/23 (120 mg-180 mg) capsule (Fish Oil) Previous Rx's Medication Instructions Recorded acetaminophen 650 mg 650 mg PO Q8H #90 tabs 01/10/22 tablet,extended release warfarin 2 mg tablet 2 mg PO .COMPLEX #90 tabs 10/05/22 furosemide 40 mg tablet 40 mg PO DAILY #90 tabs 11/16/22 omeprazole 40 mg capsule,delayed 40 mg PO DAILY #90 caps 11/16/22 release oxybutynin chloride 10 mg 10 mg PO QDAY #90 tabs 11/16/22 tablet,extended release 24 hr rosuvastatin 10 mg tablet 10 mg PO DAILY #90 tabs 11/16/22 sotalol 80 mg tablet 80 mg PO BID #180 tabs 11/16/22 anastrozole 1 mg tablet 1 mg PO QDAY #90 tabs 12/22/22 finasteride 5 mg tablet 2.5 mg (1/2 x 5 mg) PO QDAY #90 01/16/23 tabs Allergies Allergy/AdvReac Type Severity Reaction Status Date / Time codeine Allergy Intermediate Rash Verified 04/28/23 11:24 NSAIDS (Non-Steroidal AdvReac Unknown Verified 04/28/23 11:24 Anti-Inflamma Review of Systems Status of ROS: Reports: 6 or more systems reviewed and unremarkable except as noted in History and below [facility] Medical History Dyslipidemia ?E78.5 - Hyperlipidemia, unspecified (ICD-10) Osteoarthritis ?M19.90 - Unspecified osteoarthritis, unspecified site (ICD-10) Chronic kidney disease (CKD) stage G4/A1, severely decreased glomerular filtration rate (GFR) between 15-29 mL/min/1.73 square meter and albuminuria creatinine ratio less than 30 mg/g (2018) ?N18.4 - Chronic kidney disease, stage 4 (severe) (ICD-10) Osteopenia after menopause (~2018) ?M85.80 - Other specified disorders of bone density and structure, unspecified site (ICD-10) ?Z78.0 - Asymptomatic menopausal state (ICD-10) Sleep apnea ?G47.30 - Sleep apnea, unspecified (ICD-10) Rheumatoid arthritis ?M06.9 - Rheumatoid arthritis, unspecified (ICD-10) Malignant neoplasm of left breast (03/2019) ?C50.912 - Malignant neoplasm of unspecified site of left female breast (ICD- 10) Impaired functional mobility, balance, gait, and endurance ?Z74.09 - Other reduced mobility (ICD-10) Enrolled in chronic care management (2021) ?Z78.9 - Other specified health status (ICD-10) Diaphragmatic hernia (05/2016) ?K44.9 - Diaphragmatic hernia without obstruction or gangrene (ICD-10) 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 ?Z79.811 - 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 (ICD-10) History of rheumatoid arthritis ?Z87.39 - Personal history of other diseases of the musculoskeletal system and connective tissue (ICD-10) Encounter for counseling regarding advance directives (05/02/12) ?Z71.89 - Other specified counseling (ICD-10) Surgical History Status post left mastectomy (10/03/18) ?Z90.12 - Acquired absence of left breast and nipple (ICD-10) History of tonsillectomy (1942) ?Z90.89 - Acquired absence of other organs (ICD-10) History of cholecystectomy (1998) ?Z90.49 - Acquired absence of other specified parts of digestive tract (ICD- 10) History of appendectomy (1952) ?Z90.49 - Acquired absence of other specified parts of digestive tract (ICD- 10) Family History Mother Hx of blood clots Liver cancer Son Hx of blood clots Father Prostate cancer Social History Narrative: , lives at [facility], 3 adult children Does not drink alcohol Non-smoker Smoking Status: Never smoker Do you use any of these nicotine containing products: None Second hand tobacco smoke exposure: No Non-prescribed substance use: denies use Little interest or pleasure in doing things: not at all Feeling down, depressed, or hopeless: not at all Exam Narrative: Exam Narrative: Objective: Vital signs look within normal limits HEENT is unremarkable, extraocular movements intact Skin no facial asymmetry noted Mouth is clear Neck is supple Chest is clear Heart irregular regular 2/6 systolic ejection murmur Abdomen benign soft Extremities are no edema neurologic nonfocal in upper lower extremities Patient is able to sit up without dizziness or difficulty. Const: Vital Signs, click to edit/add: Vital Signs - 24 hr 04/28/23 11:19 04/28/23 12:04 04/28/23 12:28 Temperature 98.5 F Pulse Rate [Right Pulse Oximeter] 64 68 Respiratory Rate 16 16 Blood Pressure [Ri ght Upper Arm] 128/69 142/79 H Pulse Oximetry 98 98 95 Oxygen Delivery Me thod Room Air Room Air Course Vital Signs Vital signs: Initial Vital Signs Temperature 98.5 F 04/28/23 11:19 Temperature Source Temporal Artery Scan 04/28/23 11:19 Pulse Rate 64 04/28/23 11:19 Pulse Rhythm Regular 04/28/23 11:19 Pulse Strength 3+ Normal 04/28/23 11:19 Respiratory Rate 16 04/28/23 11:19 Blood Pressure 128/69 04/28/23 11:19 Blood Pressure Mean 88 04/28/23 11:19 Blood Pressure Position Supine 04/28/23 11:19 Pulse Oximetry 98 04/28/23 11:19 Oxygen Delivery Method Room Air 04/28/23 11:19 Vital Signs Temperature 98.5 F 04/28/23 11:19 Pulse Rate 64 04/28/23 11:19 Respiratory Rate 16 04/28/23 11:19 Blood Pressure 128/69 04/28/23 11:19 Pulse Oximetry 98 04/28/23 11:19 Oxygen Delivery Method Room Air 04/28/23 11:19 Temperature 98.5 F 04/28/23 11:19 Pulse Rate 68 04/28/23 12:28 Respiratory Rate 16 04/28/23 12:28 Blood Pressure 142/79 H 04/28/23 12:28 Pulse Oximetry 95 04/28/23 12:28 Oxygen Delivery Method Room Air 04/28/23 12:28 Medical Decision Making MDM Narrative Medical decision making narrative: [age] white female with dizziness lives in a senior living, she also has history of chronic dizziness and instability. The patient has had similar symptoms in the past. But because she is on Coumadin was on the floor think be appropriate to get a head CT rule out stroke, rule out bleed. Will check her INR and labs. Check an EKG. Give her 500 mL IV saline. Disposition pending findings above. EKG was done and by my read shows sinus bradycardia at a rate of 52 beats per minute first-degree AV block limited R-wave progression anteriorly but no acute ST T wave changes. Addendum 12:54 p.[address]. patient has a CT scan that looks unremarkable for new injury or stroke or bleed. Her laboratory studies look reassuring. She feels better. Will hour to go home rest light activity. Follow up with regular doctor by checkup in the next couple of days. Return sooner problems or concerns. Lab Data Labs: Lab Results 04/28/23 Range/Units 11:38 WBC 7.29 (4.50-11.00) K/uL RBC 4.77 (4.00-5.20) m/uL Hgb 13.4 (12.0-16.0) gm/dL Hct 42.8 (33.0-51.0) % MCV 90 (80-100) fL MCH 28 (26-34) pg MCHC 31 L (32-36) gm/dL RDW Coeff of Jose 15.0 (11.5-15.5) % Plt Count 212 (140-440) K/uL Neut % (Auto) 59.1 (42.0-72.0) % Lymph % (Auto) 24.8 (20-44) % Assumption % (Auto) 11.5 H (0.0-11.0) % Eos % (Auto) 4.0 (0.0-7.0) % Baso % (Auto) 0.5 (0.0-3.0) % Neut # (Auto) 4.30 (1.7-7.0) K/uL Lymph # (Auto) 1.81 (0.90-2.90) K/uL Assumption # (Auto) 0.80 (0.00-0.90) K/UL Eos # (Auto) 0.29 (0.00-0.50) K/uL Baso # (Auto) 0.04 (0.00-0.30) K/uL Abs Immat Gran (auto) 0.01 (0.00-0.30) K/uL Imm/Tot Granulo (auto) 0.1 % INR 1.67 H (0.91-1.10) Sodium 140 (135-149) mmol/L Potassium 4.2 (3.6-5.1) mmol/L Chloride 107 (96-114) mmol/L Carbon Dioxide 24 (20-32) mmol/L Anion Gap 9 (7-15) mEq/L BUN 16 (7-30) mg/dL Creatinine 1.0 (0.5-1.5) mg/dL Estimated Creat Clear 33.41 Estimated GFR 55 ml/min Glucose 98 (60-115) mg/dL Calcium 9.2 (8.4-10.6) mg/dL C-Reactive Protein < 0.5 L (0.5-1.0) mg/dL Discharge Plan Discharge Clinical Impression: Dizziness Patient Disposition: Home w/ Parent or Adult Condition: Improved Instructions: Dizziness (ED) Additional Instructions: Light activity, continue home medications, return if problems or concerns, may take some Tylenol as needed. Would recommend check with your regular doctor in the next few days for follow-up. Activity Level: Light activity Discharge Diet: Regular Prescriptions: No Action calcium carbonate-vitamin D3 600 mg-10 mcg (400 unit) tablet 1 tab PO DAILY multivitamin [Daily Multi-Vitamin] Tablet 1 tab PO QDAY PreserVision AREDS [id number] capsule 1 cap PO BID acetaminophen 650 mg tablet extended release 650 mg PO Q8H Qty: 90 1RF omega 2-fqj-jrx-fish oil [Fish Oil] 1,000 mg (120 mg-180 mg) capsule 2 cap PO QDAY sotalol 80 mg tablet 80 mg PO BID Qty: 180 1RF rosuvastatin 10 mg tablet 10 mg PO DAILY Qty: 90 4RF oxybutynin chloride 10 mg tablet extended release 24hr 10 mg PO QDAY Qty: 90 3RF omeprazole 40 mg capsule,delayed release(DR/EC) 40 mg PO DAILY Qty: 90 4RF furosemide 40 mg tablet 40 mg PO DAILY Qty: 90 4RF anastrozole 1 mg tablet 1 mg PO QDAY Qty: 90 3RF finasteride 5 mg tablet 2.5 mg PO QDAY Qty: 90 1RF warfarin 2 mg tablet 2 mg PO .COMPLEX Qty: 90 2RF Protocol: Dose Management Condition: Sunday Dose/Route: 3 mg Instruction: 1.5 x 2 mg tablets Condition: Sunday Dose/Route: 2 mg Instruction: 1 x 2 mg tablet Condition: Sunday Dose/Route: 3 mg Instruction: 1.5 x 2 mg tablets Condition: Sunday Dose/Route: 2 mg Instruction: 1 x 2 mg tablet Condition: Dose/Route: 3 mg Instruction: 1.5 x 2 mg tablets Condition: Sunday Dose/Route: 2 mg Instruction: 1 x 2 mg tablet Condition: Sunday Dose/Route: 3 mg Instruction: 1.5 x 2 mg tablets Protocol Text: Adjustment Start Date: 04/26/23 INR Value: 1.7 INR Date: 04/26/23 Recheck Date: 05/10/23 Rx Instructions: 2 mg orally; Gomes 2 MG, M 2 MG, Tu 3 MG, W 2 MG, Th 3 MG, F 2 MG, Sa 3 MG Follow Up/Referrals: Vane Cruz MD [Primary Care Provider] - Stand Alone Forms: CLIPPATE Info Instructions
[2023-04-28] MEDS: 0.9 % SODIUM CHLORIDE 500 ML 500 ML IV (11:36)
[2023-04-28] MEDS: LORazepam 2 MG/ML inj 0.25 MG IVP (11:36)
[2023-04-28 11:44] LABS: Basophils Absolute Auto 0.04 K/uL (0.00-0.30); Basophils Percent Auto 0.5 % (0.0-3.0); Eosinophils Absolute Auto 0.29 K/uL (0.00-0.50); Hematocrit 42.8 % (33.0-51.0); Hemoglobin* 13.4 gm/dL (12.0-16.0); Immature Granulocytes Abs Auto 0.01 K/uL (0.00-0.30); Immature Granulocytes Pct Auto 0.1 %; Lymphocytes Absolute Auto 1.81 K/uL (0.90-2.90); Lymphocytes Percent Auto 24.8 % (20-44); Mean Corpuscular HGB Conc 31 gm/dL (32-36); Mean Corpuscular Hemoglobin 28 pg (26-34); Mean Corpuscular Volume 90 fL (80-100); Monocytes Percent Auto 11.5 % (0.0-11.0); Neutrophils Percent Auto 59.1 % (42.0-72.0); Platelet Count* 212 K/uL (140-440); Red Blood Count 4.77 m/uL (4.00-5.20); White Blood Count* 7.29 K/uL (4.50-11.00)
[2023-04-28 11:47] LABS: Slide Review Reflex No
[2023-04-28 11:58] LABS: Chloride* 107 mmol/L (96-114); Potassium* 4.2 mmol/L (3.6-5.1); Sodium* 140 mmol/L (135-149)
[2023-04-28 12:00] LABS: INR 1.67 (0.91-1.10); Prothrombin Time 20.9 Seconds
[2023-04-28 12:01] LABS: Est. Creatinine Clearance* 33.41; Estimated Glomerular Filt Rate 55 ml/min
[2023-04-28 12:02] LABS: Anion Gap 9 mEq/L (7-15); Blood Urea Nitrogen* 16 mg/dL (7-30); Calcium* 9.2 mg/dL (8.4-10.6); Carbon Dioxide* 24 mmol/L (20-32); Glucose* 98 mg/dL (60-115)
[2023-04-28 12:04] VITALS: O2SAT 98
[2023-04-28 12:07] LABS: C Reactive Protein* < 0.5 mg/dL (0.5-1.0)
[2023-04-28 12:28] VITALS: BP 142/79; PULSE 68; RESP 16; O2SAT 95
== END 2023-04-28 13:01 | disposition home or self-care (01) ==
PROVIDERS: Emergency Provider Family Medicine; PCP Family Medicine
DX: R42 Dizziness and giddiness (principal)
CPT/HCPCS: 36415; 70450; 80048; 85025; 85610; 86140; 93005; 94761; 96374; 99284; 99285; J2060; J7120

== ENCOUNTER 2023-10-30 14:24 | Outpatient (CLI) | payer MEDICARE, BC, SELFPAY ==
--- OUTSIDE RECORDS SUMMARY | 2023-10-30 14:27 | XMS_ITS | Clinical Summary ---
Author Name Unknown Organization [facility] Address [place], [place] [address] Care Team Providers Care Circular Ripsaw Operator Name Role Phone Vane Cruz MD Primary Care Provider + Allergies Active Allergy Reactions Criticality Noted Date Comments Codeine Itching,Rash 05/17/2011 Medications Medication Sig Dispensed Refills Start Date End Date Status VITAMINS A,C,Y-RPZN-ODYJV R (PRESERVISION AREDS) 2,148 mcg-113 mg-45 mg-17.4mg tablet Take 1 Tablet by mouth once daily. 10/25/2017 Active sotaloL (BETAPACE) 80 mg tablet Take 80 mg by mouth every 12 hours. 01/27/2022 Active rosuvastatin (CRESTOR) 10 mg tablet Take 10 mg by mouth once daily in the evening. 03/26/2022 Active oxybutynin XL (DITROPAN XL) 10 mg CR tablet Take 10 mg by mouth once daily. 03/21/2022 Active omeprazole (PRILOSEC) 40 mg Delayed-Release capsule Take 40 mg by mouth once daily before a meal. 03/21/2022 Active Hypfr-3-ZUV-EPA- Fish Oil 1,000 mg (120 mg-180 mg) cap Take 1 Capsule by mouth once daily in the evening. 01/28/2016 Active multivitamin (MVI) tablet Take 1 Tablet by mouth once daily in the evening. Active furosemide (LASIX) 40 mg tablet Take 40 mg by mouth once daily if needed. 01/22/2022 Active finasteride (PROSCAR) 5 mg tablet Take 2.5 mg by mouth every morning. 07/20/2021 Active Calcium-Cholecal ciferol, D3, (Calcium 600 + D,3,) 600 mg-5 mcg (200 unit) cap Take 1 Capsule by mouth once daily in the evening. 06/26/2023 Active acetaminophen SR (Tylenol 8 Hour) 650 mg Extended-Release tablet Take 650 mg by mouth every 8 hours if needed. Max acetaminophen dose: 4000mg in 24 hrs. Active artificial tears, peg 400 0.4%-propylene glycol 0.3%, (Systane, propylene glycoL,) ophthalmic Place 1-2 Drops into both eyes 4 times daily if needed for Dry Eyes. Active aspirin (ECOTRIN) 81 mg enteric coated tabletIndication s:Presence of Watchman left atrial appendage closure device Take 1 Tablet (81 mg) by mouth once daily with a meal. 90 Tablet 2 08/22/2023 Active clopidogreL (Plavix) 75 mg tabletIndication s:Presence of Watchman left atrial appendage closure device Take 1 Tablet (75 mg) by mouth once daily. 135 Tablet 08/22/2023 Active anastrozole (ARIMIDEX) 1 mg tablet Take 1 mg by mouth once daily in the evening. 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 Pre-diabetes 09/17/2017 Dilated cardiomyopathy 06/26/2013 Congestive heart failure 06/26/2013 Encounter for long-term (current) use of medicat ions 06/19/2013 Overview: ICD-10 rodent exterminator (current) use of anticoagulants 2012 Overview: ICD-10 Chronic atrial fibrillation 06/19/2013 Rheumatoid arthritis 05/24/2011 Overview: ICD-10 DJD (degenerative joint disease), ankle and foot 05/24/2011 Iron deficiency anemia 05/24/2011 Lumbar spondylosis 05/24/2011 NSAID-associated gastropathy 05/24/2011 Overweight 05/24/2011 Overview: ICD-10 Rotator cuff syndrome of right shoulder 05/24/20 11 Encounters Date Type Department Care Team Description 10/24/2023 10:30 AM CDT Office Visit [facility] [address] [facility] [address] [place] [address] Elijah Odonnell MD CV Electrophysiology Est (6 month CV EP f/u. Pacemaker implant and Watchman procedure since last visit. Pt reports fatigue but feeling well. ) 10/24/2023 Travel 09/04/2023 Travel 08/22/2023 10:30 AM AUTO VINYL TOP INSTALLER Office Visit [facility] [address] [facility] [address] [place] [phone] Alonso Sanches MD CV General Cardiology Est (45 day Watchman f/u with Echo CINDY prior//PCP; Vane Cruz MD) 08/22/2023 8:08 AM AUTO VINYL TOP INSTALLER - 08/22/2023 11:59 PM AUTO VINYL TOP INSTALLER Hospital Encounter [facility] [address] [place] [address] Dixie Rivera MD [place], [place], RDCS, RVT Presence of Watchman left atrial appendage closure device 08/22/2023 Travel 08/07/2023 2:00 PM AUTO VINYL TOP INSTALLER Office Visit [facility] [address] [place] [address] Randall Viveros MD CV Vascular Est (OV; 1MFU; Imaging prior -arteriovenous fistula of the right superficial femoral artery-right superficial femoral vein.) 08/07/2023 1:00 PM AUTO VINYL TOP INSTALLER - 08/07/2023 11:59 PM AUTO VINYL TOP INSTALLER Hospital Encounter [facility] [address] [place] [address] Randall Viveros MD Moore, Brian H Femoral arteriovenous fistula, right (HC) 08/07/2023 Travel from Last 3 Months Immunizations Name Administration Dates Next Due Influenza, High-dose Inactivated 04/06/2019,100 12/2015,04/29/2013 Influenza, High-dose Quadriv alent Inactivated 04/17/2023,04/12/2022,03/30/2021 Influenza, IIV3 (Age 6-35 mos) 3,04/10/2011,04/27/2010,2007,05/22/2007,05/25/2006 Influenza, IIV3 (Age >=3 years) 04/01/20 13,05/01/2012,04/10/2011,2009,06/01/2009,05/22/2007,05/25/2006 Influenza, IIV4 04/25/2019,05/31/2012,05/20/2000 Influenza, IIV4 (=>6mos) MDV 04/23/2014 Influenza, Whole Virus 04/25/2005,04/28/2004, Social History Tobacco Use Types Packs/Day Years Used Date Smoking Tobacco: Never Smokeless Tobacco: Never Alcohol Use Standard Drinks/Week Comments Yes 1 (1 standard drink = 0.6 oz pur e alcohol) Social Connections Answer Date Recorded Frequency of Communication with Friends and Fami ly 0 07/05/2023 Financial Resource Strain Answer Date R ecorded Difficulty of Paying Living Expenses 3 07/05/2023 Difficulty of Paying Living Expenses Not on file 07/05/2023 Food Insecurity Answer Date Recorded Worried About Running Out of Food in the Last Ye ar 1 07/05/2023 Transportation Needs Answer Date Record ed Lack of Transportation (Medical) 1 07/05/2023 Housing Stability Answer Date Recorded Unable to Pay for Housing in the Last Year 1 07/05/2023 Sex and Gender Information Value Date Recorded Sex Assigned at Not on file Gender Identity Not on file Sexual Orientation Not on file Obstetrics History Last Filed Vital Signs Vital Sign Reading Time Taken Comments Blood Pressure 110/60 10/24/2023 10:25 AM CDT Pulse 63 10/24/2023 10:25 AM CDT Temperature 37.1 ??C (98.7 ??F) 07/06/2023 8:31 AM CS T Respiratory Rate 16 08/22/2023 12:25 PM AUTO VINYL TOP INSTALLER Oxygen Saturation 94% 10/24/2023 10:25 AM CDT Inhaled Oxygen Concentration - - Weight 78.9 kg (174 lb) 10/24/2023 10:25 AM CDT Height 160 cm (5' 3) 10/24/2023 10:25 AM CDT Body Mass Index 30.82 10/24/2023 10:25 AM CDT Plan of Treatment Upcoming Encounters Date Type Department Care Team (Late st Contact Info) Description 01/04/2024 Cardiac Device Check [facility] [phone] Health Maintenance Due Date Last Done Comments COVID-19 vaccine series (#1) 1941 Pneumococcal series for age 65+ (1 of 2 - PCV) 1942 Tdap 1947 Depression screening for age 12+ 1948 Zoster (shingles) series for age 50+ (1 of 2) 1955 Tetanus booster 1956 DEXA/DXA scan for age 65+ 2001 Medicare Wellness for age 65+ 2001 Influenza for age 65+ 02/24/2024 04/17/2023 , 04/12/2022, 03/30/2021, Additional history exists BMI (ht and wt on same day) for age 18+ 10/23/2024 10/24/2023, 08/22/2023, 05/04/2023 Procedures Procedure Name Priority Date/Time Associated Diagnosis Comments EKG 12 LEAD Routine 10/24/2023 Dilated cardiomyopathy (HC) Chronic atrial fibrillation (HC) ECHO CINDY WO CONTRAST W COLOR W LTD DOPPLER Routine 08/22/2023 11:10 AM AUTO VINYL TOP INSTALLER Presence of Watchman left atrial appendage closure device US ARTERIAL LOWER EXTREMITY PSEUDOANEURYSM RIGHT Routine 08/07/2023 1:47 PM AUTO VINYL TOP INSTALLER Femoral arteriovenous fistula, right (HC) from Last 3 Months Results * EKG 12 LEAD (10/24/2023) Elijah Odonnell MD EKG ORD * ECHO CINDY WO CONTRAST W COLOR W LTD DOPPLER (08/22/2023 11:10 AM AUTO VINYL TOP INSTALLER) EJECTION FRACTION 55 - 60% Anatomical Region Laterality Modality Ultrasound 08/22/2023 8:08 AM AUTO VINYL TOP INSTALLER Narrative 08/22/2023 1:19 PM AUTO VINYL TOP INSTALLER TRANSESOPHAGEAL ECHOCARDIOGRAM DENISE GONZALEZ ? Accession#: ?? [id number] : ?1935 88 years Study Date: ?? 08/22/2023 8:08:50 AM Gender: F ?BP: ? 145/77 mmHg Height: 160.00 cm ?BSA: ?1.90 m? ? ? Weight: 87.00 kg ? Tech: ? DR JOSETTE ? Referring MD: DIXIE RIVERA Site: ? [facility] Reading Location: [facility] OP Patient Location: Outpatient. Procedure: CINDY, Color Doppler, Limited Spectral Doppler and 3D Imaging. Indication for study: Watchman Cardiac Rhythm: Irregular.Study quality: Good. Final Impressions: 1. Well seated WATCHMAN device without barrera-device leak or thrombus. 2. LVEF 55-60%. 3. Preserved RV function. 4. Moderate TAMI. 5. Mild mitral regurgitation. 6. Small pericardial effusion. Procedure comments: Indications, goals, risks and alternatives of the procedure were discussed with the patient and informed consent was obtained. The patient received oral Lidocaine to anesthetized the posterior oropharynx, intravenous Fentanyl and conscious sedation of intravenous Versed. See procedural record for anesthesia details. Prior to performance of procedure, time out was called to accurately identify the patient and procedure. The Foxtrot probe was passed without difficulty. CINDY, Color Doppler, Limited Spectral Doppler and 3D Imaging was performed. The patient developed no apparent complications during the procedure. Estimated Blood Loss: 0 ml Chamber Sizes and Function Normal left ventricular size, normal global systolic function with an estimated EF of 55 - 60%. Left atrial size is moderately enlarged. The left atrial appendage not well visualized. Not well visualized left atrial appendage flow velocities. Right ventricular cavity size is normal, global systolic RV function is normal. RV wall thickness is normal. The right atrium is moderately enlarged. The pulmonary artery is of normal size and origin. The sinus of Valsalva is normal sized. The ascending aorta is normal sized. Aortic arch is not well visualized. Descending aorta is normal sized with mild plaque visualized. Valves, RV Pressures and Diastolic Function The aortic valve is normal in structure and trileaflet, no stenosis and trivial regurgitation. The mitral valve is normal in structure, mild mitral regurgitation. The tricuspid valve is normal in structure. Tricuspid regurgitation is trace regurgitation. The pulmonic valve is normal. Trace pulmonary regurgitation. Pulmonary veins show a normal flow pattern. The left upper and right upper pulmonary veins were not well visualzied. Masses, Effusion, Shunts There is small pericardial effusion. Atrial septum is intact. Agitated saline injection not done. MEASUREMENTS AND CALCULATIONS 2-D Measurements and LV Function: HR 55 bpm . This study was interpreted by an [facility] accredited facility. ??Final ?? Procedure Note Aron Fenton MD - 08/22/2023 TRANSESOPHAGEAL ECHOCARDIOGRAM DENISE GONZALEZ : 1935 88 years Study Date: 08/22/2023 8:08:50 AM Gender: F BP: 145/77 mmHg Height: 160.00 cm BSA: 1.90 m? ? ? Weight: 87.00 kg Tech: DR JOSETTE Vanessa MD: DIXIE RIVERA Site: [facility] Reading Location: [facility] Patient Location: Outpatient. Procedure: CINDY, Color Doppler, Limited Spectral Doppler and 3D Imaging. Indication for study: Watchman Cardiac Rhythm: Irregular.Study quality: Good. Final Impressions: 1. Well seated WATCHMAN device without barrera-device leak or thrombus. 2. LVEF 55-60%. 3. Preserved RV function. 4. Moderate TAMI. 5. Mild mitral regurgitation. 6. Small pericardial effusion. Procedure comments: Indications, goals, risks and alternatives of theprocedure were discussed with the patient and informed consent wasobtained. The patient received oral Lidocaine to anesthetized theposterior oropharynx, intravenous Fentanyl and conscious sedation ofintravenous Versed. See procedural record for anesthesia details. Prior toperformance of procedure, time out was called to accurately identify thepatient and procedure. The Foxtrot probe was passed without difficulty.CINDY, Color Doppler, Limited Spectral Doppler and 3D Imaging was performed.The patient developed no apparent complications during the procedure. Estimated Blood Loss: 0 ml Chamber Sizes and Function Normal left ventricular size, normal global systolic function with anestimated EF of 55 - 60%. Left atrial size is moderately enlarged. Theleft atrial appendage not well visualized. Not well visualized left atrialappendage flow velocities. Right ventricular cavity size is normal, globalsystolic RV function is normal. RV wall thickness is normal. The rightatrium is moderately enlarged. The pulmonary artery is of normal size andorigin. The sinus of Valsalva is normal sized. The ascending aorta isnormal sized. Aortic arch is not well visualized. Descending aorta isnormal sized with mild plaque visualized. Valves, RV Pressures and Diastolic Function The aortic valve is normal in structure and trileaflet, no stenosis andtrivial regurgitation. The mitral valve is normal in structure, mildmitral regurgitation. The tricuspid valve is normal in structure.Tricuspid regurgitation is trace regurgitation. The pulmonic valve isnormal. Trace pulmonary regurgitation. Pulmonary veins show a normal flowpattern. The left upper and right upper pulmonary veins were not wellvisualzied. Masses, Effusion, Shunts There is small pericardial effusion. Atrial septum is intact. Agitatedsaline injection not done. MEASUREMENTS AND CALCULATIONS 2-D Measurements and LV Function: HR 55 bpm . This study was interpreted by an [facility] accredited facility. Final Dixie Rivera MD ECHO ORD * US ARTERIAL LOWER EXTREMITY PSEUDOANEURYSM RIGHT (08/07/2023 1:47 PM AUTO VINYL TOP INSTALLER) Anatomical Region Laterality Modality LEG R Ultrasound 08/07/2023 1:25 PM AUTO VINYL TOP INSTALLER Narrative 08/07/2023 6:24 PM AUTO VINYL TOP INSTALLER VASCULAR ULTRASOUND REPORT DENISE GONZALEZ Accession#: ?? [id number] : ?[id number] ??Study Date: ?? 08/07/2023 1:25:53 PM Age: ?88 years ?? Tech: ? BHM Gender: F ?Referring MD: RANDALL VIVEROS Site: [facility] Study performed: ?Lower Arterial Pseudoaneurysm Indication for study: iatrogenic arteriovenous fistula and groin bruit Study Quality: ?Good TECHNIQUE: The arteries in the groin area (funding coordinator, sfa and pfa) were evaluated with irizarry-scale ultrasound, color-flow and Doppler spectral analysis. Any pseudoaneurysm or AV fistula are documented per exam specific protocol. IMPRESSION: 1. Study shows arteriovenous fistula communicating from the proximal superficial femoral artery to the distal common femoral vein. Fistula neck measures approximately 2.8mm in diameter. 2. No evidence of pseudoaneurysm, hematoma, or deep vein thrombosis in the right inguinal region. COMPARISON: Compared to prior study 07/05/2023, there is no significant change. FINDINGS: Preliminary findings were discussed with Dr. Viveros at time of examination. Alonso Koch MD. Electronically signed on 08/07/2023 6:24:05 PM This study was performed and interpreted by a service accredited by the Intersocietal Accreditation Commission (IAC/Vascular), www.[email or web address]/vascular Report generated by [employer]. ??Final ?? Procedure Note Alonso Koch MD - 08/07/2023 VASCULAR ULTRASOUND REPORT DENISE GONZALEZ : 1935 Study Date: 08/07/2023 1:25:53 PM Age: 88 years Tech: BHM Gender: F Referring MD: RANDALL VIVEROS Site: [facility] Study performed: Lower Arterial Pseudoaneurysm Indication for study: iatrogenic arteriovenous fistula and groin bruit Study Quality: Good TECHNIQUE: The arteries in the groin area (funding coordinator, sfa and pfa) wereevaluated with irizarry-scale ultrasound, color-flow and Doppler spectralanalysis. Any pseudoaneurysm or AV fistula are documented per examspecific protocol. IMPRESSION: 1. Study shows arteriovenous fistula communicating from the proximalsuperficial femoral artery to the distal common femoral vein. Fistula neckmeasures approximately 2.8mm in diameter. 2. No evidence of pseudoaneurysm, hematoma, or deep vein thrombosis inthe right inguinal region. COMPARISON: Compared to prior study 07/05/2023, there is no significant change. FINDINGS: Preliminary findings were discussed with Dr. Viveros at time ofexamination. Alonso Koch MD. Electronically signed on 08/07/2023 6:24:05 PM This study was performed and interpreted by a service accredited by theIntersocietal Accreditation Commission (IAC/Vascular),[email or web address].[email or web address]/vascular Report generated by [employer]. Final Randall Viveros MD US from Last 3 Months Advance Directives Documents on File Type Date Recorded Patient Clinical Trials Specialist Expl anation Healthcare Directive 06/06/2023 8:50 AM * Full Code (Latest Code Status on File) Date Activated Date Inactivated Comments 08/22/2023 9:09 AM 08/23/2023 2:31 AM Question Answer Comments Code Status Discussion: Reviewed Preferences * Full Code Date Activated Date Inactivated Comments 07/04/2023 10:33 AM 07/06/2023 4:16 PM Question Answer Comments Code Status Discussion: Other Care Teams Circular Ripsaw Operator Relationship Specialty Start Date End Date Vane Cruz MD [address] [facility] [address] PCP - General Family Practice 02/08/21
== END 2023-10-30 14:25 | disposition home or self-care (01) ==
PROVIDERS: PCP Family Medicine; Visit Provider Family Medicine
DX: M81.0 Age-related osteoporosis without current pathological fracture (principal); D62 Acute posthemorrhagic anemia; E78.5 Hyperlipidemia, unspecified; R73.03 Prediabetes
CPT/HCPCS: 80053; 80061; 82306; 82728

== ENCOUNTER 2023-11-08 10:40 | Outpatient (RCR) | payer MEDICARE, BC, SELFPAY | END 2024-05-06 23:59 | disposition home or self-care (01) | LOC: CCIC 10:40 | PROVIDERS: PCP Family Medicine; Visit Provider Physician Assistant | DX: C50.912 Malignant neoplasm of unspecified site of left female breast (principal); Z17.0 Estrogen receptor positive status [ER+]; Z79.811 Long term (current) use of aromatase inhibitors; M81.0 Age-related osteoporosis without current pathological fracture; Z90.13 Acquired absence of bilateral breasts and nipples | CPT/HCPCS: 99214; G0463 ==

== ENCOUNTER 2024-04-15 08:53 | Outpatient (CLI) | payer MEDICARE, BC, SELFPAY ==
--- OUTSIDE RECORDS SUMMARY | 2024-04-15 08:56 | XMS_ITS | Clinical Summary ---
Author Organization [facility] Address [place], [place] [address] Care Team Providers Care Freight Representative Name Role Phone Vane Cruz MD Primary Care Provider + Allergies Active Allergy Reactions Criticality Noted Date Comments Codeine Itching,Rash 05/17/2011 Medications Medication Sig Dispensed Refills Start Date End Date Status VITAMINS A,C,S-OHBN-KJYXRK (PRESERVISION AREDS) 2,148 mcg-113 mg-45 mg-17.4mg tablet [...] once daily before a meal. 03/21/2022 Active Ejvda-8-ENO-EPA-F estelita Oil 1,000 mg (120 mg-180 mg) cap Take 1 Capsule by mouth once daily in the evening. 01/28/2016 Active multivitamin (MVI) tablet Take 1 Tablet by mouth once daily in the evening. Active furosemide (LASIX) 40 mg tablet Take 40 mg by mouth once daily if needed. 01/22/2022 Active finasteride (PROSCAR) 5 mg tablet Take 2.5 mg by mouth every morning. 07/20/2021 Active Calcium-Cholecalc iferol, D3, (Calcium 600 + D,3,) 600 mg-5 [...] Active aspirin (ECOTRIN) 81 mg enteric coated tabletIndications :Presence of Watchman left atrial appendage closure device Take 1 Tablet (81 mg) by mouth once daily with a meal. 90 Tablet 2 08/22/2023 Active clopidogreL (Plavix) 75 mg tabletIndications :Presence of Watchman left atrial appendage closure device Take 1 Tablet (75 mg) by mouth once daily. 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 Pre-diabetes 09/17/2017 Dilated cardiomyopathy 06/26/2013 Congestive heart failure 06/26/2013 Encounter for long-term (current) use of medicat ions 06/19/2013 Overview (06/26/2023): ICD-10 senior living (current) use of anticoagulants 2012 Overview (06/26/2023): ICD-10 Chronic atrial fibrillation 06/19/2013 Rheumatoid arthritis 05/24/2011 Overview (06/26/2023): ICD-10 DJD (degenerative joint disease), ankle and foot 05/24/2011 Iron deficiency anemia 05/24/2011 Lumbar spondylosis 05/24/2011 NSAID-associated gastropathy 05/24/2011 Overweight 05/24/2011 Overview (06/26/2023): ICD-10 Rotator cuff syndrome of right shoulder 05/24/20 11 Immunizations Name Administration Dates Next Due Influenza, High-dose Inactivated 04/06/2019,12/2015,04/29/2013 Influenza, High-dose Quadriv alent Inactivated 04/17/2023,04/12/2022,03/30/2021 Influenza, [...] file 07/05/2023 Food Insecurity Answer Date Recorded Do you worry your food will run out before you are able to buy more? 1 07/05/2023 Transportation Needs Answer Date Record ed Lack of Transportation (Medical) 1 07/05/2023 Housing Stability Answer Date Recorded What is your housing situation today? 1 07/05/2023 Sex and Gender Information Value [...] T Respiratory Rate 16 08/22/2023 12:25 PM BED LABORER Oxygen Saturation 94% 10/24/2023 10:25 AM CDT Inhaled Oxygen Concentration - - Weight 78.9 kg (174 lb) 10/24/2023 10:25 AM CDT Height 160 cm (5' 3) 10/24/2023 10:25 AM CDT Body Mass Index 30.82 10/24/2023 10:25 AM CDT Plan of Treatment Upcoming Encounters Date Type Department Care Team (Late st Contact Info) Description 05/06/2024 Cardiac Device Check [facility] [phone] Health Maintenance Due Date Last Done Comments COVID-19 vaccine series (#1) 1941 Pneumococcal series for age 65+ (1 of 2 - PCV) 1942 Tdap 1947 Depression screening for age 12+ 1948 Zoster (shingles) series for age 50+ (1 of 2) 1955 Tetanus booster 1956 DEXA/DXA scan for age 65+ 2001 Medicare Wellness for age 65+ 2001 RSV vaccine for adults or (1 - 1-dose 75+ series) 2011 Influenza for age 65+ 02/24/2024 04/17/2023 , 04/12/2022, 03/30/2021, Additional history exists BMI (ht and wt on same day) for age 18+ 10/23/2024 10/24/2023, 08/22/2023, 05/04/2023 Advance Directives Documents on File Type Date Recorded Patient Assistant Purchasing Manager Expl anation Healthcare Directive 06/06/2023 8:50 AM * Full Code (Latest Code Status on File) Date Activated Date Inactivated Comments 08/22/2023 9:09 AM 08/23/2023 2:31 AM Question Answer Comments Code Status Discussion: Reviewed Preferences * Full Code Date Activated Date Inactivated Comments 07/04/2023 10:33 AM 07/06/2023 4:16 PM Question Answer Comments Code Status Discussion: Other Care Teams Freight Representative Relationship Specialty Start Date End Date Vane Cruz MD [address] [place] [address] PCP - General Family Practice 02/08/21
--- NOTE | 2024-04-15 09:15 | CRLHL7_ITS ---
For Patients: As a result of the Century Cures Act, medical imaging exams and procedure reports are released immediately into your electronic medical record. You may view this report before your referring provider. If you have questions, please contact your health care provider. BILATERAL SCREENING MAMMOGRAM WITH COMPUTER-AIDED DETECTION AND TOMOSYNTHESIS TECHNIQUE: CC and MLO views were obtained. These mammographic images have been obtained using full-field digital technique. These mammographic images were interpreted with the benefit of computer-aided detection. Breast Tomosynthesis was used in this interpretation. COMPARISON FILM: 04/10/23, 02/23/22, 12/15/20. FINDINGS: There are scattered areas of fibroglandular density. IMPRESSION: There is no radiographic evidence for malignancy. ASSESSMENT: BI-RADS Category 2: Benign RECOMMENDATION: Routine screening mammogram in 1 year. A lay language report of this examination will be provided to the patient. Ilya Low M.D. Diagnostic Radiologist [email or web address] SP/Dictated by: Ilya Low MD @ 04/17/2024 11:50:00 AM (Electronically Signed)
== END 2024-04-15 08:54 | disposition home or self-care (01) ==
PROVIDERS: PCP Family Medicine; Visit Provider Family Medicine
DX: Z12.31 Encounter for screening mammogram for malignant neoplasm of breast (principal)
CPT/HCPCS: 77063; 77067

== ENCOUNTER 2024-04-29 10:48 | Outpatient (CLI) | payer MEDICARE, BC, SELFPAY ==
--- OUTSIDE RECORDS SUMMARY | 2024-05-01 10:59 | XMS_ITS | Clinical Summary ---
Author Organization 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 03/21/2022 Active Oqkeo-0-HCQ-EPA-F estelita Oil 1,000 mg (120 mg-180 mg) [...] e alcohol) Social Connections Answer Date Recorded Do you often feel lonely or isolated from those around you? 0 07/05/2023 Financial Resource Strain Answer Date R ecorded Difficulty of Paying Living Expenses 3 07/05/2023 Difficulty of Paying Living Expenses Not on file 07/05/2023 Food Insecurity Answer Date Recorded Do you worry your food will run out before you are able to buy more? 1 07/05/2023 Transportation Needs Answer Date Record ed Does lack of transportation keep you from medica l appointments? 1 07/05/2023 Does lack of transportation keep you from work, meetings or getting things that you need? 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 Oxygen Saturation 94% 10/24/2023 10:25 AM CDT Inhaled Oxygen Concentration - - Weight 78.9 kg (174 lb) 10/24/2023 10:25 AM CDT Height 160 cm (5' 3) 10/24/2023 10:25 AM CDT Body Mass Index 30.82 10/24/2023 10:25 AM CDT Plan of Treatment Upcoming Encounters Date Type Department Care Team (Late st Contact Info) Description 05/06/2024 Cardiac Device Check [place] [facility] [place] [phone] Health Maintenance Due Date Last Done Comments [...] Documents on File Type Date Recorded 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
== END 2024-04-29 10:49 | disposition home or self-care (01) ==
LOC: NFLDREF 05-01 10:57
PROVIDERS: PCP Family Medicine; Referring Provider Family Medicine; Visit Provider Family Medicine
DX: N18.4 Chronic kidney disease, stage 4 (severe) (principal); D62 Acute posthemorrhagic anemia; I48.0 Paroxysmal atrial fibrillation; I50.9 Heart failure, unspecified
CPT/HCPCS: 80053

== ENCOUNTER 2024-11-04 10:05 | Outpatient (CLI) | payer MEDICARE, BC, SELFPAY | END 2024-11-04 10:06 | disposition home or self-care (01) | LOC: NFLDREF 11-11 23:38 | PROVIDERS: PCP Family Medicine; Referring Provider Family Medicine; Visit Provider Family Medicine | DX: I10 Essential (primary) hypertension (principal); E78.5 Hyperlipidemia, unspecified; M81.0 Age-related osteoporosis without current pathological fracture; D64.9 Anemia, unspecified | CPT/HCPCS: 80053; 80061; 82306 ==

== ENCOUNTER 2025-05-05 09:20 | Outpatient (CLI) | payer MEDICARE, BC, SELFPAY | END 2025-05-05 09:21 | disposition home or self-care (01) | LOC: NFLDREF 05-08 08:56 | PROVIDERS: PCP Family Medicine; Referring Provider Family Medicine; Visit Provider Family Medicine | DX: R63.4 Abnormal weight loss (principal); R53.1 Weakness; M81.0 Age-related osteoporosis without current pathological fracture; R53.83 Other fatigue | CPT/HCPCS: 80053; 82306; 82607; 84443 ==

== ENCOUNTER 2025-06-09 08:38 | Outpatient (CLI) | payer MEDICARE, BC, SELFPAY ==
--- NOTE | 2025-06-09 09:15 | CRLHL7_ITS ---
For Patients: As a result of the Century Cures Act, medical imaging exams and procedure reports are released immediately into your electronic medical record. You may view this report before your referring provider. If you have questions, please contact your health care provider. INDICATION: UNILATERAL RIGHT SCREENING MAMMOGRAM, ASYMPTOMATIC 89 Y/O FEMALE COMPARISON: 04/15/2024, 04/10/2023, 02/23/2022 TECHNIQUE: Digital mammogram in CC and MLO projections including computer-aided detection (CAD) and tomosynthesis. BREAST COMPOSITION: There are scattered areas of fibroglandular density. FINDINGS: No suspicious findings. ASSESSMENT: BI-RADS 1 Negative RECOMMENDATION: Annual screening mammogram. A lay language report of this examination will be provided to the patient. Dictated by: Ilya Low MD @ 06/09/2025 09:27:25 (Electronically Signed)
== END 2025-06-09 08:39 | disposition home or self-care (01) ==
LOC: MAMMO 08:38
PROVIDERS: PCP Family Medicine; Visit Provider Family Medicine
DX: Z12.31 Encounter for screening mammogram for malignant neoplasm of breast (principal)
CPT/HCPCS: 77063; 77067